=== PATIENT | female | born 1995 | race Caucasian/White ===

== ENCOUNTER 2018-08-15 22:43 | Emergency (ER) | payer MEDICAID ==
[2018-08-15 23:31] LABS: HCG,QUALITATIVE URINE NEGATIVE (NEGATIVE)
[2018-08-15 23:45] LABS: SQUAMOUS EPITHIAL 2 /hpf (0-5); URINE BACTERIA RARE (<OCC); URINE BILIRUBIN NEGATIVE (NEGATIVE); URINE BLOOD 2+ (NEGATIVE); URINE CLARITY Hazy (Clear); URINE COLOR Yellow (YELLOW); URINE GLUCOSE (UA) NORMAL (Normal); URINE LEUKOCYTE ESTERASE 3+ Leu/uL (Negative); URINE PROTEIN 3+ mg/dL (NEGATIVE); WBC CLUMPS MOD /hpf
--- NOTE | 2018-08-16 00:20 | C.PDOC ---
History Of Present Illness 23 year old female presents to the ER with a complaint of abdominal pain, back pain, and urinary frequency for the past 2 days. Denies nausea, vomiting, dysuria, hematuria, or fever. Time Seen by Provider: 08/15/18 23:09 Chief Complaint (Nursing): Female Genitourinary History Per: Patient History/Exam Limitations: no limitations Onset/Duration Of Symptoms: Days (2) Current Symptoms Are (Timing): Still Present Quality Of Discomfort: Unable To Describe Associated Symptoms: Urinary Symptoms (Frequency, no dysuria or hematuria), Ot her (Abdominal pain, Back pain). denies: Fever, Nausea, Vomiting Alleviating Factors: None Recent travel outside of the [place]: No Abnormal Vaginal Bleeding: No Past Medical History Reviewed: Historical Data, Nursing Documentation, Vital Signs Vital Signs: Last Vital Signs Temp 98.6 F 08/15/18 22:56 Pulse 100 H 08/15/18 22:56 Resp 22 08/15/18 22:56 BP 120/76 08/15/18 22:56 Pulse Ox 98 08/15/18 22:56 Family History: States: Unknown Family Hx - Social History Hx Alcohol Use: No Hx Substance Use: No - Immunization History Hx Tetanus Toxoid Vaccination: No Hx Influenza Vaccination: No Hx Pneumococcal Vaccination: No Review Of Systems Constitutional: Negative for: Fever, Chills Gastrointestinal: Positive for: Abdominal Pain. Negative for: Nausea, Vomiting Genitourinary: Positive for: Frequency. Negative for: Dysuria, Hematuria Musculoskeletal: Positive for: Back Pain Physical Exam - Physical Exam Appears: Non-toxic Skin: Normal Color, Warm, Dry Head: Atraumatic, Normacephalic Eye(s): bilateral: Normal Inspection Oral Mucosa: Moist Gastrointestinal/Abdominal: Soft, No Tenderness Back: No CVA Tenderness, No Vertebral Tenderness, No Paraspinal Tenderness Pelvic: Other (Deferred) Extremity: Normal ROM (x4) Neurological/Psych: Oriented x3, Normal Speech, Normal Motor, Normal Sensation Gait: Steady ED Course And Treatment O2 Sat by Pulse Oximetry: 98 (Room air) Pulse Ox Interpretation: Normal Progress Note: Urinalysis ordered, results were positive for UTI. Patient started on macrobid, will discharge home with Rx and instructions to follow up with PMD or return if symptoms worsen. Disposition - Disposition Referrals: [facility] [Outside] Disposition: HOME/ ROUTINE Disposition Time: 00:16 Condition: STABLE Additional Instructions: Please follow up with PMD Increase PO fluids take medications as directed Return to ER if worse Prescriptions: Nitrofurantoin Macrocrystals [Macrobid] 1 cap PO BID #14 cap Phenazopyridine HCl [Pyridium] 100 mg PO TID #6 tab Instructions: Urinary Tract Infection, Adult (DC) Forms: [employer] (Citizen [place]) - Clinical Impression Clinical Impression: UTI (urinary tract infection) - PA / ATTENDING PHYSICIAN / Resident Statement MD/DO has reviewed & agrees with the documentation as recorded. - Scribe Statement The provider has reviewed the documentation as recorded by the Scribchase Monreal All medical record entries made by the Jayashreeibchase were at my direction and personally dictated by me. I have reviewed the chart and agree that the record accurately reflects my personal performance of the history, physical exam, medical decision making, and the department course for this patient. I have also personally directed, reviewed, and agree with the discharge instructions and disposition.
[2018-08-16 00:21] VITALS: BP 115/73; PULSE 68; RESP 20; TEMP 98.9
[2018-08-16 00:22] VITALS: O2SAT 98
== END 2018-08-16 00:34 | disposition home or self-care (01) ==
LOC: C.ER 22:43
DX: N39.0 Urinary tract infection, site not specified (principal)